=== PATIENT | female | born 1975 | race African-American/Black ===

== ENCOUNTER 2018-08-22 01:35 | Emergency (ER) | payer OTHER ==
[2018-08-22 01:45] VITALS: BP 118/75; PULSE 76; TEMP 98.3
[2018-08-22] MEDS ORDERED: SODIUM CHLORIDE 0.9% 1,000 ML IV STA (02:00)
--- NOTE | 2018-08-22 02:21 | ED ---
General Adult HPI - General Source: patient, family, RN notes reviewed Mode of arrival: ambulatory Limitations: no limitations <Darian Beltran - Last Filed: 08/22/18 03:21> <Ava Murdock - Last Filed: 08/22/18 06:43> - General Chief complaint: Vaginal Bleeding Stated complaint: Female Time Seen by Provider: 08/22/18 01:47 - History of Present Illness Initial comments: Patient's a 43-year-old female presents emergency room today with a chief complaint of dysuria. Patient does admit to increased urinary frequency. She does admit that she was treated for urinary tract infection approximately 1 month ago. She states that she was placed on Keflex also Diflucan. She states that she feels that the symptoms are back. She states she noticed that when she goes to the bathroom she wipes she sees some blood. She states she was unsure if she was maybe just wiping to hard. She does admit that she's had increased frequency. Patient does admit to some dizziness at times. Admits to history of anemia. States she does take iron. She denies any other complaints or symptoms. Patient denies any recent fever, chills, shortness of breath, chest pain, back pain, abdominal pain, nausea or vomiting, numbness or tingling , headaches or visual changes, or any other complaints. (Darian Beltran) - Related Data Allergies Allergy/AdvReac Type Severity Reaction Status Date / Time ibuprofen Allergy Unknown Verified 08/22/18 01:45 Review of Systems ROS Other: All systems not noted in ROS Statement are negative. <Darian Beltran - Last Filed: 08/22/18 03:21> ROS Other: All systems not noted in ROS Statement are negative. <Ava Murdock - Last Filed: 08/22/18 06:43> ROS Statement: Those systems with pertinent positive or pertinent negative responses have been documented in the HPI. Past Medical History Past Medical History: No Reported History History of Any Multi-Drug Resistant Organisms: MRSA Date of last positivie culture/infection: 01/24 MDRO Source:: blood Past Surgical History: Bariatric Surgery Smoking Status: Never smoker Past Alcohol Use History: None Reported Past Drug Use History: None Reported <Darian Beltran - Last Filed: 08/22/18 03:21> General Exam Limitations: no limitations <BeltranBriannaDarian - Last Filed: 08/22/18 03:21> Vital Signs 08/22/18 01:40 Temperature 98.3 F Pulse Rate 76 Respiratory 20 Rate Blood Pressure 118/75 O2 Sat by Pulse 100 Oximetry Medical Decision Making - Lab Data Result diagrams: 08/22/18 02:40 08/22/18 02:40 <DevinDarian - Last Filed: 08/22/18 03:21> - Lab Data Result diagrams: 08/22/18 02:40 08/22/18 02:40 <Angel Murdockssica Dom - Last Filed: 08/22/18 06:43> - Medical Decision Making Patient was initially seen and evaluated by Darian Beltran. Patient was presenting with vaginal bleeding and some lightheadedness after an apparent encounter with police. Urinalysis and labs were ordered Urinalysis had gross contamination and no evidence of UTI The patient was requesting to be seen by a physician rather than a PA, for care Patient has multiple complaints, she's been evaluated multiple times over the past few months diagnosed with urinary tract infections, she reports she has had urine cultures that revealed staph and E. coli. She's been treated with amoxicillin, Keflex, Macrobid. In addition she has been treated for Trichomonas and empirically treated for sexual transmitted infections. Patient reports that she has not been sexually active since being treated and she has no concern for sexual transmitted infections upon my initial evaluation. The patient's labs resulted with significant anemia, these results were discussed with the patient reports that she has had significant anemia in the past with hemoglobins as low as 3. She reports that due to her belief system she will not receive a blood transfusion. She also states that despite her spiritual beliefs she also would not accept a blood transfusion of somebody else 's blood due to risk of infectious disease. I did discuss with the patient that the low hemoglobin as taxing on her body and causing her fatigue and lightheadedness. Patient expresses understanding of this. Patient has follow- up with gynecology on the of this month. Patient repeatedly insisting that the bleeding is not from her known fibroids but from a kidney stone. A computed tomography scan was ordered. Computed tomography scan does reveal large pelvic mass is likely uterine in nature, however due to decreased visceral fat there was difficulty and imaging. Recommendation for ultrasound. Ultrasound was ordered. Patient allowed the transabdominal ultrasound but declined that pelvic ultrasound. Patient again insisting that none of her problems are caused by the fibroids and that she is here only for treatment of urinary tract infection. The patient's urine is not positive for urinary tract infection. Pelvic exam revealed scant dark blood in the vaginal vault, no active bleeding, no lesions, no vaginal discharge infection Swabs were taken The patient requested testing and treatment for sexual transmitted infections. Treatment for sexual transmitted infections including Flagyl for BV were given, patient reports she develops yeast infections with antibiotics so by mouth look on his all ordered. I offered the patient admission to the hospital for further evaluation of her anemia and possible treatment with transfusion. Patient declined this. Patient states that she has follow-up with gynecology. Patient has already contacted a urologist but does not have follow-up. The patient has decided to leave against medical advice because she does not want a blood transfusion and has established follow-up The patient has adequate capacity to make medical decisions. The patient refuses hospital admission and wants to be discharged. The risks have been explained to the patient, including worsening illness, chronic pain, permanent disability and . The benefits of workup/admission have also been explained, including the availability and proximity of nurses, physicians, monitoring, diagnostic testing , treatment and transfusion The patient was able to understand and state the risks and benefits of hospital admission. This was witnessed by nurse Gutierrez and me. The patient the opportunity to ask questions about their medical condition. The patient was treated to the extent that they would allow and knows that they may return for care at any time. (Ava Murdock) - Lab Data Lab Results 08/22/18 08/22/18 08/22/18 Range/Units 02:20 02:20 02:40 WBC 7.0 (3.8-10.6) k/uL RBC 4.11 (3.80-5.40) m/uL Hgb 6.8 L* (11.4-16.0) gm/dL Hct 25.5 L (34.0-46.0) % MCV 62.0 L (80.0-100.0) fL MCH 16.5 L (25.0-35.0) pg MCHC 26.6 L (31.0-37.0) g/dL RDW 19.2 H (11.5-15.5) % Plt Count 317 (150-450) k/uL Neutrophils % 78 % Lymphocytes % 16 % Monocytes % 4 % Eosinophils % 0 % Basophils % 0 % Neutrophils # 5.5 (1.3-7.7) k/uL Lymphocytes # 1.1 (1.0-4.8) k/uL Monocytes # 0.3 (0-1.0) k/uL Eosinophils # 0.0 (0-0.7) k/uL Basophils # 0.0 (0-0.2) k/uL Hypochromasia Marked Poikilocytosis Moderate Anisocytosis Slight Microcytosis Marked Sodium (137-145) mmol/L Potassium (3.5-5.1) mmol/L Chloride (98-107) mmol/L Carbon Dioxide (22-30) mmol/L Anion Gap mmol/L BUN (7-17) mg/dL Creatinine (0.52-1.04) mg/dL Est GFR (CKD-EPI)AfAm (>60 ml/min/1.73 sqM) Est GFR (CKD-EPI)NonAf (>60 ml/min/1.73 sqM) Glucose (74-99) mg/dL Calcium (8.4-10.2) mg/dL Total Bilirubin (0.2-1.3) mg/dL AST (14-36) U/L ALT (9-52) U/L Alkaline Phosphatase (38-126) U/L Total Protein (6.3-8.2) g/dL Albumin (3.5-5.0) g/dL Urine Color Yellow Urine Appearance Clear (Clear) Urine pH 5.5 (5.0-8.0) Ur Specific [place] 1.021 (1.001-1.035) Urine Protein Trace H (Negative) Urine Glucose (UA) Trace H (Negative) Urine Ketones Negative (Negative) Urine Blood Moderate H (Negative) Urine Nitrite Negative (Negative) Urine Bilirubin Negative (Negative) Urine Urobilinogen 3.0 (<2.0) mg/dL Ur Leukocyte Esterase Negative (Negative) Urine RBC 34 H (0-5) /hpf Urine WBC 2 (0-5) /hpf Ur Squamous Epith Cells 1 (0-4) /hpf Urine Mucus Occasional H (None) /hpf Urine HCG, Qual Not Detected (Not Detectd) 08/22/18 Range/Units 02:40 WBC (3.8-10.6) k/uL RBC (3.80-5.40) m/uL Hgb (11.4-16.0) gm/dL Hct (34.0-46.0) % MCV (80.0-100.0) fL MCH (25.0-35.0) pg MCHC (31.0-37.0) g/dL RDW (11.5-15.5) % Plt Count (150-450) k/uL Neutrophils % % Lymphocytes % % Monocytes % % Eosinophils % % Basophils % % Neutrophils # (1.3-7.7) k/uL Lymphocytes # (1.0-4.8) k/uL Monocytes # (0-1.0) k/uL Eosinophils # (0-0.7) k/uL Basophils # (0-0.2) k/uL Hypochromasia Poikilocytosis Anisocytosis Microcytosis Sodium 139 (137-145) mmol/L Potassium 4.1 (3.5-5.1) mmol/L Chloride 109 H (98-107) mmol/L Carbon Dioxide 21 L (22-30) mmol/L Anion Gap 9 mmol/L BUN 11 (7-17) mg/dL Creatinine 0.59 (0.52-1.04) mg/dL Est GFR (CKD-EPI)AfAm >90 (>60 ml/min/1.73 sqM) Est GFR (CKD-EPI)NonAf >90 (>60 ml/min/1.73 sqM) Glucose 78 (74-99) mg/dL Calcium 9.0 (8.4-10.2) mg/dL Total Bilirubin 0.5 (0.2-1.3) mg/dL AST 29 (14-36) U/L ALT 28 (9-52) U/L Alkaline Phosphatase 45 (38-126) U/L Total Protein 7.0 (6.3-8.2) g/dL Albumin 4.3 (3.5-5.0) g/dL Urine Color Urine Appearance (Clear) Urine pH (5.0-8.0) Ur Specific [place] (1.001-1.035) Urine Protein (Negative) Urine Glucose (UA) (Negative) Urine Ketones (Negative) Urine Blood (Negative) Urine Nitrite (Negative) Urine Bilirubin (Negative) Urine Urobilinogen (<2.0) mg/dL Ur Leukocyte Esterase (Negative) Urine RBC (0-5) /hpf Urine WBC (0-5) /hpf Ur Squamous Epith Cells (0-4) /hpf Urine Mucus (None) /hpf Urine HCG, Qual (Not Detectd) Disposition <Darian Beltran - Last Filed: 08/22/18 03:21> Is patient prescribed a controlled substance at d/c from ED?: No <Ava Murdock - Last Filed: 08/22/18 06:43> Clinical Impression: Dysfunctional uterine bleeding, Microcytic anemia, Uterine fibroid, Encounter for screening examination for sexually transmitted disease Disposition: Left Against Medical Advice Prescriptions: Clindamycin Gel [Clindamycin Phosphate] 1 applic TOPICAL DAILY #7 applicator Fluconazole [Diflucan] 100 mg PO DAILY #1 tab metroNIDAZOLE [Flagyl] 500 mg PO BID 7 Days #14 tab Referrals: None,Stated [Primary Care Provider] - 1-2 days
[2018-08-22 02:42] LABS: Appearance,Urine Clear (Clear); Bilirubin,Urine Negative (Negative); Blood,Urine Moderate (Negative); Color,Urine Yellow; Glucose,Urine (UA) Trace (Negative); Ketones,Urine Negative (Negative); Leukocyte Esterase,Urine Negative (Negative); Mucus,Urine Occasional /hpf; Nitrite,Urine Negative (Negative); PH, Urine 5.5 (5.0-8.0); Protein,Urine Trace (Negative); RBC,Urine 34 /hpf (0-5); Specific Gravity,Urine 1.021 (1.001-1.035); Squamous Epithelial Cell,Urine 1 /hpf (0-4); WBC,Urine 2 /hpf (0-5)
[2018-08-22 02:59] LABS: Anisocytosis Slight; Eosinophils % (A) 0 %; Hypochromasia Marked; Microcytosis Marked; Poikilocytosis Moderate
[2018-08-22 03:09] LABS: ALT 28 U/L (9-52); AST 29 U/L (14-36); Albumin 4.3 g/dL (3.5-5.0); Alkaline Phosphatase 45 U/L (38-126); Anion Gap 9 mmol/L; Blood Urea Nitrogen 11 mg/dL (7-17); Carbon Dioxide 21 mmol/L (22-30); Chloride 109 mmol/L (98-107); Glucose 78 mg/dL (74-99); Potassium 4.1 mmol/L (3.5-5.1); Sodium 139 mmol/L (137-145); Total Bilirubin 0.5 mg/dL (0.2-1.3)
[2018-08-22 03:12] LABS: Basophils % (A) 0 %; HCT 25.5 % (34.0-46.0); Lymphocytes # (A) 1.1 k/uL (1.0-4.8); Lymphocytes % (A) 16 %; MCH 16.5 pg (25.0-35.0); MCHC 26.6 g/dL (31.0-37.0); Mean Platelet Volume 6.6; Monocytes # (A) 0.3 k/uL (0-1.0); Monocytes % (A) 4 %; Neutrophils # (A) 5.5 k/uL (1.3-7.7); Neutrophils % (A) 78 %; Platelet Count 317 k/uL (150-450); RBC 4.11 m/uL (3.80-5.40); RDW 19.2 % (11.5-15.5)
[2018-08-22 03:15] LABS: HGB 6.8 gm/dL (11.4-16.0)
--- NOTE | 2018-08-22 04:33 | CT ---
EXAMINATION TYPE: CT abdomen pelvis wo con DATE OF EXAM: 08/22/2018 COMPARISON: None HISTORY: vaginal bleeding CT DLP: 350.4 mGycm Automated exposure control for dose reduction was used. TECHNIQUE: Helical acquisition of images was performed from the lung bases through the pelvis. FINDINGS: Lung bases are clear of consolidation. There is no pleural effusion. There is subsegmental atelectasi s at the right posterior lung base. There is no pericardial effusion. Liver shows no focal defect. There is no evidence of a spine mass. Exam is limited by lack of contras t. Gallbladder is large and measures 4.5 cm. There is no sign of pancreatic mass. There are surgical clips apparently of the stomach from bariatric surgery. There is no adrenal mass. Kidneys show no hyd ronephrosis. I see no definite retroperitoneal adenopathy. Bladder distends smoothly. Uterus is antev erted. Uterus is large and measures 13 x 7 cm. The lumbar spine is intact. I see no bony destructive process. There is a rounded 7.5 cm intermediate soft tissue density mass in the high pelvis on the right side. Origin of this mass is not clear. The exam is limited by lack of intraperitoneal fat. I see no defin ite free fluid in the pelvis. There is no inguinal hernia. There is no inguinal adenopathy. I see no definite intestinal wall thickening. There is no sign of a bowel obstruction. There is gas down to th e rectum. IMPRESSION: LARGE MASS IN THE PELVIS ON THE RIGHT SIDE. I WOULD CONSIDER POSSIBILITIES OF OVARIAN TUMOR, LARGE EX OPHYTIC FIBROID, HEMORRHAGIC CYST. ULTRASOUND WOULD BE HELPFUL FOR FURTHER EVALUATION IF CLINICALLY I NDICATED. NO BOWEL OBSTRUCTION. APPENDIX IS NOT SEEN.
[2018-08-22] MEDS ORDERED: NALOXONE 0.4 MG/ML 1 ML VIAL IV PRN (05:06)
--- NOTE | 2018-08-22 06:09 | US ---
EXAMINATION TYPE: US pelvic complete DATE OF EXAM: 08/22/2018 COMPARISON: NONE CLINICAL HISTORY: Pain. TECHNIQUE: Transabdominal (TA). Transabdominal sonographic images of the pelvis were acquired. Pt doesn't want TV. Date of LMP: 07/06/2018 EXAM MEASUREMENTS: Uterus: 13.1 x 8.3 x 12.1 cm Endometrial Stripe: 2.1 cm Right Ovary: 4.2 x 3.6 x 2.6 cm Left Ovary: Unable to visualize at this time Limited due to bowel gas and uterine size. 1. Uterus: Anteverted Overall heterogeneous with 2 border defined fibroids (pedunculated: 6.0 x 5. 9 x 6.9cm) (intramural: 3.7 x 3.5 x 3.7cm) 2. Endometrium: Prominent with echogenic area within and some trace fluid above and below echogenic area (3.2 x 1.9 x 2.0cm)?submucosal fibroid versus polyp versus other etiology 3. Right Ovary: Anechoic area with some internal debris likely hemorrhagic cyst versus other etiolog y 4. Left Ovary: Obscured by overlying bowel gas not visualized Spectral, color and waveform doppler imaging shows good arterial and venous flow within the right o vary. 5. Bilateral Adnexa: wnl peristalsing bowel 6. Posterior cul-de-sac: wnl IMPRESSION: Left ovary is not seen. No adnexal mass. Large pedunculated uterine fibroid on the right side that explains the soft tissue density in the pelvis on the CT scan today. No free fluid. Abnorma l thickened endometrium measures 2.1 cm. Follow-up is recommended. There is complex thickening of the endometrium. Right ovarian artery shows normal arterial waveform on the color Doppler images. No evidence of torsi on
[2018-08-22] MEDS ORDERED: AZITHROMYCIN 500 MG TAB PO STA (06:21)
[2018-08-22] MEDS ORDERED: cefTRIAXone 250 MG VIAL IM STA (06:21)
[2018-08-22 06:49] VITALS: RESP 18
[2018-08-23 16:11] LABS: C. trachomatis,PCR Negative (Neg,Equiv); Chlamydia trachomatis Source Vagina
[2018-08-23 16:13] LABS: N. gonorrhoeae,PCR Negative (Neg,Equiv); Neisseria Source Vagina
== END 2018-08-22 06:45 | disposition left against medical advice (07) ==
LOC: EC 01:35
DX: N93.8 Other specified abnormal uterine and vaginal bleeding (principal); D25.9 Leiomyoma of uterus, unspecified; D50.9 Iron deficiency anemia, unspecified; Z11.3 Encounter for screening for infections with a predominantly sexual mode of transmission; Z86.14 Personal history of Methicillin resistant Staphylococcus aureus infection; Z88.6 Allergy status to analgesic agent
CPT/HCPCS: 36415; 80053; 85025; 81001; 81025; 87040; 87808; 87491; 87591; 87070; 87086; 93976; 76856; 74176; 99284; 96360; 96361; 96372; J0696; 87205

== ENCOUNTER 2018-08-22 12:32 | Inpatient (IN) | payer MEDICARE, OTHER ==
--- NOTE | 2018-08-22 13:11 | ED ---
General Adult HPI - General Chief complaint: Vaginal Bleeding Stated complaint: Vaginal Bleeding Time Seen by Provider: 08/22/18 12:32 Source: EMS, RN notes reviewed Mode of arrival: EMS Limitations: no limitations - History of Present Illness Initial comments: This is a 43-year-old female presents emergency Department complaining of heavy vaginal bleeding over the last few days. Patient was seen this morning in the emergency department she left AMA after she was told she had a blood transfusion and she refused to receive 4. Patient went over to [facility] did not inform them that she was over at our facility earlier in the day and they offered a blood transfusion again she refused and I transferred care to our hospitalist morning. Patient states she continues to bleed but not as heavy she was earlier. Patient states she's very lightheaded and feels as though she might pass out at times. Patient states she has had heavy bleeding every month with her. Patient is a very lightheaded like this in the past. Patient again is refusing any blood transfusion. - Related Data Previous Rx's Medication Instructions Recorded Clindamycin Gel [Clindamycin 1 applic TOPICAL DAILY #7 08/22/18 Phosphate] applicator Fluconazole [Diflucan] 100 mg PO DAILY #1 tab 08/22/18 Fluconazole [Diflucan] 150 mg PO ONCE #1 tab 08/22/18 metroNIDAZOLE [Flagyl] 500 mg PO BID 7 Days #14 tab 08/22/18 Allergies Allergy/AdvReac Type Severity Reaction Status Date / Time aspirin AdvReac GASTRIC Verified 08/22/18 13:06 BYPASS ibuprofen AdvReac GASTRIC Verified 08/22/18 13:06 BYPASS Review of Systems ROS Statement: Those systems with pertinent positive or pertinent negative responses have been documented in the HPI. ROS Other: All systems not noted in ROS Statement are negative. Past Medical History Past Medical History: No Reported History History of Any Multi-Drug Resistant Organisms: MRSA Date of last positivie culture/infection: 01/24 MDRO Source:: blood Past Surgical History: Bariatric Surgery Past Psychological History: Anxiety, Depression Smoking Status: Never smoker Past Alcohol Use History: None Reported Past Drug Use History: None Reported General Exam - General Exam Comments Initial Comments: GENERAL: Patient is well-developed and well-nourished. Patient is nontoxic and well- hydrated and is in no acute distress. ENT: Neck is soft and supple. No significant lymphadenopathy is noted. Oropharynx is clear. Moist mucous membranes. Neck has full range of motion without eliciting any pain. There is no thyroid enlargement and no masses were felt. EYES: The sclera were anicteric and conjunctiva is pale. Extraocular movements were intact and pupils were equal round and reactive to light. Eyelids were unremarkable. PULMONARY: Unlabored respirations. Good breath sounds bilaterally. No audible rales rhonchi or wheezing was noted. CARDIOVASCULAR: There is a regular rate and rhythm without any murmurs gallops or rubs. ABDOMEN: Soft and nontender with normal bowel sounds. SKIN: Skin is clear with no lesions or rashes and otherwise unremarkable. NEUROLOGIC: Patient is alert and oriented x3. Cranial nerves II through XII are grossly intact. Motor and sensory are also intact. Normal speech, volume and content. Symmetrical smile. MUSCULOSKELETAL: Normal extremities with adequate strength and full range of motion. No lower extremity swelling or edema. No calf tenderness. LYMPHATICS: No significant lymphadenopathy is noted PSYCHIATRIC: Normal psychiatric evaluation. Limitations: no limitations Course Vital Signs 08/22/18 12:32 Temperature 97.6 F Pulse Rate 65 Respiratory 18 Rate Blood Pressure 108/66 O2 Sat by Pulse 100 Oximetry Medical Decision Making - Medical Decision Making I spoke with Dr. Jose To agreed to come and see the patient. Once Dr. To saw the patient the patient agreed to a blood transfusion and admitted the patient Dr. To. - Lab Data Result diagrams: 08/22/18 13:12 Lab Results 08/22/18 Range/Units 13:12 WBC 4.1 (3.8-10.6) k/uL RBC 3.59 L (3.80-5.40) m/uL Hgb 5.7 L* (11.4-16.0) gm/dL Hct 22.4 L (34.0-46.0) % MCV 62.5 L (80.0-100.0) fL MCH 15.9 L (25.0-35.0) pg MCHC 25.5 L (31.0-37.0) g/dL RDW 19.2 H (11.5-15.5) % Plt Count 281 (150-450) k/uL Neutrophils % 68 % Lymphocytes % 23 % Monocytes % 5 % Eosinophils % 1 % Basophils % 0 % Neutrophils # 2.8 (1.3-7.7) k/uL Lymphocytes # 1.0 (1.0-4.8) k/uL Monocytes # 0.2 (0-1.0) k/uL Eosinophils # 0.0 (0-0.7) k/uL Basophils # 0.0 (0-0.2) k/uL Hypochromasia Marked Poikilocytosis Moderate Anisocytosis Slight Microcytosis Marked Disposition Clinical Impression: Anemia, Vaginal bleeding, Lightheaded Disposition: ADMITTED IP TO THIS HOSP Referrals: None,Stated [Primary Care Provider] - 1-2 days Time of Disposition: 14:02
[2018-08-22 13:30] LABS: Anisocytosis Slight; Basophils % (A) 0 %; Eosinophils % (A) 1 %; HCT 22.4 % (34.0-46.0); Hypochromasia Marked; Lymphocytes % (A) 23 %; MCH 15.9 pg (25.0-35.0); MCHC 25.5 g/dL (31.0-37.0); MCV 62.5 fL (80.0-100.0); Mean Platelet Volume 6.2; Microcytosis Marked; Monocytes # (A) 0.2 k/uL (0-1.0); Monocytes % (A) 5 %; Neutrophils # (A) 2.8 k/uL (1.3-7.7); Neutrophils % (A) 68 %; Platelet Count 281 k/uL (150-450); Poikilocytosis Moderate; RBC 3.59 m/uL (3.80-5.40); RDW 19.2 % (11.5-15.5); WBC 4.1 k/uL (3.8-10.6)
[2018-08-22 13:38] LABS: HGB 5.7 gm/dL (11.4-16.0)
[2018-08-22] MEDS ORDERED: SODIUM CHLORIDE 0.9% 1,000 ML IV ONE ×2 (14:15→15:39)
--- NOTE | 2018-08-22 14:40 | P.HPOB ---
History of Present Illness H&P Date: 08/22/18 Chief Complaint: Menorrhagia with symptomatic anemia Patient is a 43-year-old she 0 P0 who arrives to the emergency room this morning complaining of heavy vaginal bleeding. She relates that over the last 6 -8 months her bleeding has gotten dramatically worse than it was previously bleeding for as many as 7 days at a time with only 20 days in between periods. She notes that her bleeding has become heavier over the last 4-5 years and she is seen multiple gynecologists but no long-term treatment plan had been devised. She relates that she was aware that she had a fibroid uterus and the previously when the left with the last 2-3 year she had seen a varnisher apprentice in [place] could try to put her on Lysteda for her heavy bleeding following some type of biopsy. Today her hemoglobin is noted to be 5.7. After lengthy discussion with the patient we have opted for a D&C with hysteroscopy and she will receive blood transfusion prior to entering surgery to keep her from having any significant problems or at least to try and keep her from having any significant [place] due to her anemia intraoperatively. We did discuss risks and benefits including bleeding and infection as well as damage to the uterine wall perforation or need for other surgeries. Ultrasound today showed a 13 cm uterus with a 6 cm pedunculated fibroid as well as a probable 4 cm intramural fibroid. Within the lining of the uterus the lining measures 2.1 cm but there is also some question as to whether or not there is a polyp or fibroid in her uterus as well. She is scheduled for a D&C with hysteroscopy to thin the lining of her uterus and then will try and plan outpatient either control pills were Lysteda to try and keep her from having any more heavy bleeding. During our lengthy discussion about treatment plan and options she continued to get off topic and tensioned about her vaginal infection or skin infection which she thinks has something to do with her vaginal bleeding I have reiterated to her that bacterial vaginosis should not cause any heavy vaginal bleeding and an E. coli bacterial infection were also not cause any significant vaginal bleeding at least insofar as her case is concerned with 2 clear reasons for her to have heavy vaginal bleeding already present. Past Medical History Past Medical History: No Reported History History of Any Multi-Drug Resistant Organisms: MRSA Date of last positivie culture/infection: 01/24 MDRO Source:: blood Past Surgical History: Bariatric Surgery Past Psychological History: Anxiety, Depression Smoking Status: Never smoker Past Alcohol Use History: None Reported Past Drug Use History: None Reported Medications and Allergies Home Medications Medication Instructions Recorded Confirmed Type Clindamycin Gel [Clindamycin 1 applic TOPICAL DAILY #7 08/22/18 08/22/18 Rx Phosphate] applicator Fluconazole [Diflucan] 100 mg PO DAILY #1 tab 08/22/18 08/22/18 Rx Fluconazole [Diflucan] 150 mg PO ONCE #1 tab 08/22/18 08/22/18 Rx metroNIDAZOLE [Flagyl] 500 mg PO BID 7 Days #14 tab 08/22/18 08/22/18 Rx Allergies Allergy/AdvReac Type Severity Reaction Status Date / Time aspirin AdvReac GASTRIC Verified 08/22/18 13:06 BYPASS ibuprofen AdvReac GASTRIC Verified 08/22/18 13:06 BYPASS Exam Osteopathic Statement: *. No significant issues noted on an osteopathic structural exam other than those noted in the History and Physical/Consult. Vital Signs Temp Pulse Resp BP Pulse Ox 08/22/18 14:20 97.9 F 84 18 110/60 100 08/22/18 12:32 97.6 F 65 18 108/66 100 Intake and Output 08/21/18 08/22/18 08/22/18 22:59 06:59 14:59 Other: Weight 72.575 kg - OBG Physical Exam Breast: both: normal (no masses) Abdomen: bowel sounds normal, no diffuse tenderness, no bruit present, no guarding noted, no hepatomegaly, no splenomegaly, no mass Vulva: both: normal Vagina: normal moisture, no discharge Cervix: no lesion, no discharge Uterus: normal size, normal contour Adnexa: both: normal Anus/Rectum: normal perianal skin, no rectal mass, no hemorrhoids, heme negative Results Result Diagrams: 08/22/18 13:12 Abnormal Lab Results - Last 24 Hours (Table) 08/22/18 Range/Units 13:12 RBC 3.59 L (3.80-5.40) m/uL Hgb 5.7 L* (11.4-16.0) gm/dL Hct 22.4 L (34.0-46.0) % MCV 62.5 L (80.0-100.0) fL MCH 15.9 L (25.0-35.0) pg MCHC 25.5 L (31.0-37.0) g/dL RDW 19.2 H (11.5-15.5) %
[2018-08-22] MEDS ORDERED: fentaNYL (PF) 50 MCG/ML 2 ML AMP ONE (15:39)
[2018-08-22] MEDS ORDERED: MIDAZOLAM 2 MG/2 ML VIAL ONE (15:39)
[2018-08-22] MEDS ORDERED: PROPOFOL 10 MG/ML 20 ML VIAL IV ONE (15:39)
--- NOTE | 2018-08-22 16:13 | P.OP ---
Date of Procedure: 08/22/18 Preoperative Diagnosis: Menorrhagia with anemia and fibroid uterus Postoperative Diagnosis: Same Procedure(s) Performed: D&C with hysteroscopy Anesthesia: MARYLIN Surgeon: Shamir To Estimated Blood Loss (ml): 30 Pathology: other (Uterine curettings) Condition: stable Disposition: floor Operative Findings: Uterine lining showing fibroids and probable polyp as well as proliferative endometrium Description of Procedure: Patient was taken to the operating suite where a general anesthetic was found be adequate. She was prepped and draped in the normal sterile fashion and placed in the dorsal lithotomy position. Initially a weighted speculum was inserted into the vagina and the anterior lip cervix identified and grasped with a single-tooth tenaculum. Uterus was then sounded to 11 cm and the cervix was dilated. Camera was inserted difficult visualization with significant quantity of blood and proliferative endometrium. Camera was then removed and sharp curettings the endometrium were obtained. All tissues placed on Telfa sent to pathology for evaluation. There was suspected polyp that was removed as well as possible fibroid, lining was somewhat irregular consistent with fibroid uterus. Once tissues collected, incidents removed. Sponge, lap, needle counts were all correct 2. Patient was then taken to the recovery room in stable and satisfactory condition.
[2018-08-22] MEDS: KETOROLAC 30 MG/ML 1 ML VIAL IVP PRN (19:45)
[2018-08-22 20:44] VITALS: BMI 27.4
[2018-08-22 23:36] VITALS: RESP 16
--- NOTE | 2018-08-23 08:17 | P.DS ---
Providers Date of admission: 08/22/18 14:15 Expected date of discharge: 08/23/18 Attending physician: Shamir To Consults: 08/22/18 16:04 Consult Physician Routine Consulting Provider: María Armenta Consult Reason/Comments: anemia Do you want consulting provider notified?: Yes Primary care physician: Stated None Hospital Course: Patient is seen and evaluated this morning. She is feeling much better than yesterday. Lightheadedness is essentially resolved. She notes that she has some light spotting but that is all. Thorough discussion of instructions for discharge were reviewed including should she have any heavy bleeding or severe pain or other changes including lightheadedness or dizziness to report back to the emergency room. She will follow up with me in 2 weeks for review of pathology and discussion of long-term plan. I did send a prescription for Lasix due to to the pharmacy and she is going to take that one tablet 3 times a day for up to 5 days during her cycle to hopefully reduce her bleeding. She is aware of risks including blood clots and DVT stroke and MS or other due to the way that lysed it works, however she is previously also been counseled on this medication was supposed to been taking it already. We did discuss and I did offer and provide 6 months worth of control should she choose, but she is not to use both as that would increase her risk of DVT to an acceptable margin. We'll plan discharged home home today assuming her hemoglobin is about 7. She also will need iron tablets which were also sent to her pharmacy. Though she can take one a day. On physical exam vital signs are currently stable and afebrile. Heart regular, lungs clear, extremities are without pain. Abdomen soft nontender and vaginal bleeding is light. Patient Condition at Discharge: Stable Plan - Discharge Summary New Discharge Prescriptions: New Tranexamic Acid [Lysteda] 650 mg PO Q8HR #15 tablet No Action Clindamycin Gel [Clindamycin Phosphate] 1 applic TOPICAL DAILY #7 applicator Fluconazole [Diflucan] 100 mg PO DAILY #1 tab metroNIDAZOLE [Flagyl] 500 mg PO BID 7 Days #14 tab Fluconazole [Diflucan] 150 mg PO ONCE #1 tab Discharge Medication List Clindamycin Gel [Clindamycin Phosphate] 1 applic TOPICAL DAILY #7 applicator [Rx] Fluconazole [Diflucan] 100 mg PO DAILY #1 tab 08/22/18 [Rx] Fluconazole [Diflucan] 150 mg PO ONCE #1 tab 08/22/18 [Rx] metroNIDAZOLE [Flagyl] 500 mg PO BID 7 Days #14 tab 08/22/18 [Rx] Tranexamic Acid [Lysteda] 650 mg PO Q8HR #15 tablet 08/23/18 [Rx] Follow up Appointment(s)/Referral(s): None,Stated [Primary Care Provider] - 1-2 days Shamir To DO [Doctor of Osteopathic Medicine] - 2 Weeks Activity/Diet/Wound Care/Special Instructions: Call the office or return to the emergency room with any heavy vaginal bleeding. I did explain that she should have some vaginal spotting to light bleeding over the next several days as the remnants of the uterine contents still are going to come out. However, should she have any heavy bleeding greater than 1 pad per hour she needs or ports emergency room immediately due to how low her hemoglobin was to start. She will follow up with me in 2 weeks in the office at that time she should've had 1 cycle and hopefully if she can take her Lasix. She can see if that actually worked to help her bleeding. Discharge Disposition: HOME SELF-CARE
[2018-08-23] MEDS: KETOROLAC 30 MG/ML 1 ML VIAL IVP PRN (08:57)
[2018-08-23 10:20] VITALS: BP 121/78; PULSE 63; TEMP 99.2
[2018-08-23 11:22] LABS: Anisocytosis Moderate; Basophils % (A) 1 %; Eosinophils # (A) 0.1 k/uL (0-0.7); Eosinophils % (A) 2 %; HCT 29.1 % (34.0-46.0); Hypochromasia Marked; Lymphocytes # (A) 0.8 k/uL (1.0-4.8); Lymphocytes % (A) 20 %; MCH 19.1 pg (25.0-35.0); MCHC 28.3 g/dL (31.0-37.0); MCV 67.4 fL (80.0-100.0); Mean Platelet Volume 6.7; Microcytosis Marked; Monocytes # (A) 0.2 k/uL (0-1.0); Monocytes % (A) 6 %; Neutrophils # (A) 2.7 k/uL (1.3-7.7); Neutrophils % (A) 70 %; Platelet Count 281 k/uL (150-450); Poikilocytosis Marked; RBC 4.31 m/uL (3.80-5.40); RDW 21.7 % (11.5-15.5); WBC 3.8 k/uL (3.8-10.6)
[2018-08-23 11:27] LABS: HGB 8.2 gm/dL (11.4-16.0)
--- NOTE | 2018-08-23 14:09 | P.CONS ---
History of Present Illness - Reason for Consult Anemia - History of Present Illness 38-year-old female has been vaginal bleed came in with symptomatic anemia received 2 units of blood transfusion hemoglobin around 8 as consulted for further evaluate continued patient has microcytic anemia most probably I severe iron deficiency anemia I ordered the ferritin levels which will not be available but by the time of her discharge, also order B12 and folate levels as per the request of the patient but these look will not be available by the time patient is discharged and I requested her to let the primary care physician know so that this can be followed up as an outpatient. If patient ferritin is significantly low she may need IV iron transfusion. Patient is presently being discharged on 325 by mouth of ferrous sulfate asked her to take 325 by mouth twice a day. Patient did have gastric bypass surgery which is contributing to her severe anemia probable severe and deficiency patient at this point of time denied any symptoms. Patient underwent endometrial curettage. Review of Systems REVIEW OF SYSTEMS: CONSTITUTIONAL: No fever, no malaise, no fatigue. HEENT: No recent visual problems or hearing problems. Denied any sore throat. CARDIOVASCULAR: No chest pain, orthopnea, PND, no palpitations, no syncope. PULMONARY: No shortness of breath, no cough, no hemoptysis. GASTROINTESTINAL: No diarrhea, no nausea, no vomiting, no abdominal pain. Normoactive bowel sounds. NEUROLOGICAL: No headaches, no weakness, no numbness. HEMATOLOGICAL: Denies any bleeding or petechiae. GENITOURINARY: Denies any burning micturition, frequency, or urgency. MUSCULOSKELETAL/RHEUMATOLOGICAL: Denies any joint pain, swelling, or any muscle pain. ENDOCRINE: Denies any polyuria or polydipsia. The rest of the 14-point review of systems is negative. Past Medical History Past Medical History: No Reported History History of Any Multi-Drug Resistant Organisms: MRSA Year Discovered:: 01/24 MDRO Source:: blood Past Surgical History: Bariatric Surgery Past Psychological History: Anxiety, Depression Smoking Status: Never smoker Past Alcohol Use History: None Reported Past Drug Use History: None Reported Medications and Allergies Home Medications Medication Instructions Recorded Confirmed Type Clindamycin Gel [Clindamycin 1 applic TOPICAL DAILY #7 08/22/18 08/22/18 Rx Phosphate] applicator Fluconazole [Diflucan] 100 mg PO DAILY #1 tab 08/22/18 08/22/18 Rx Fluconazole [Diflucan] 150 mg PO ONCE #1 tab 08/22/18 08/22/18 Rx metroNIDAZOLE [Flagyl] 500 mg PO BID 7 Days #14 tab 08/22/18 08/22/18 Rx Acetaminophen-Codeine 300-30mg 1 tab PO Q4H PRN #20 tablet 08/23/18 Rx [Tylenol #3] Ferrous Sulfate [Feosol] 325 mg PO DAILY #30 tab 08/23/18 Rx Tranexamic Acid [Lysteda] 650 mg PO Q8HR #15 tablet 08/23/18 Rx Tranexamic Acid [Lysteda] 650 mg PO Q8HR #15 tablet 08/23/18 Rx Allergies Allergy/AdvReac Type Severity Reaction Status Date / Time aspirin AdvReac GASTRIC Verified 08/22/18 13:06 BYPASS ibuprofen AdvReac GASTRIC Verified 08/22/18 13:06 BYPASS Physical Exam Vitals: Vital Signs Temp Pulse Pulse Resp BP BP Pulse Ox 08/23/18 07:00 99.2 F 63 16 121/78 100 08/23/18 00:41 98.0 F 70 16 96/61 100 08/22/18 21:10 97.7 F 87 16 120/76 100 08/22/18 19:00 55 L 107/69 08/22/18 18:45 55 L 114/74 08/22/18 18:30 55 L 121/77 08/22/18 18:15 53 L 114/73 08/22/18 18:00 98.1 F 104 H 12 124/74 97 08/22/18 17:45 59 L 16 112/68 100 08/22/18 17:30 97.2 F L 49 L 16 117/62 100 08/22/18 17:10 97 F L 53 L 53 L 16 118/75 118/75 100 08/22/18 17:09 97.2 F L 49 L 16 117/62 100 08/22/18 16:59 97.2 F L 52 L 16 113/73 100 08/22/18 16:55 53 L 16 113/70 100 08/22/18 16:40 58 L 16 113/70 100 08/22/18 16:25 57 L 16 108/72 100 08/22/18 16:10 97.2 F L 73 16 111/69 98 08/22/18 16:00 16 08/22/18 15:57 97.5 F L 53 L 16 113/70 08/22/18 14:20 97.9 F 84 18 110/60 100 Intake and Output 08/22/18 08/23/18 08/23/18 22:59 06:59 14:59 Intake Total 1210 Output Total 100 Balance 1110 Intake: IV 900 Blood Product 310 Rc As-3 Unit 0 [id number] Rc As-3 Unit 310 [id number] Output: Estimated Blood Loss 100 Other: Voiding Method Toilet # Voids 1 2 Weight 72.575 kg PHYSICAL EXAMINATION: GENERAL: The patient is alert and oriented x3, not in any acute distress. Well developed, well nourished. HEENT: Pupils are round and equally reacting to light. EOMI. No scleral icterus. No conjunctival pallor. Normocephalic, atraumatic. No pharyngeal erythema. No thyromegaly. CARDIOVASCULAR: S1 and S2 present. No murmurs, rubs, or gallops. PULMONARY: Chest is clear to auscultation, no wheezing or crackles. ABDOMEN: Soft, nontender, nondistended, normoactive bowel sounds. No palpable organomegaly. MUSCULOSKELETAL: No joint swelling or deformity. EXTREMITIES: No cyanosis, clubbing, or pedal edema. NEUROLOGICAL: Gross neurological examination did not reveal any focal deficits. SKIN: No rashes. Results CBC & Chem 7: 08/23/18 10:00 Labs: Abnormal Lab Results - Last 24 Hours (Table) 08/22/18 08/23/18 Range/Units 13:12 10:00 Hgb 8.2 L D (11.4-16.0) gm/dL Hct 29.1 L (34.0-46.0) % MCV 67.4 L (80.0-100.0) fL MCH 19.1 L (25.0-35.0) pg MCHC 28.3 L (31.0-37.0) g/dL RDW 21.7 H (11.5-15.5) % Lymphocytes # 0.8 L (1.0-4.8) k/uL Crossmatch See Detail Assessment and Plan Plan: Possible acute on chronic anemia acute anemia secondary to vaginal bleed patient received 3 units of blood transfusion chronic anemia probably secondary because of severe iron deficiency from gastric bypass further management as mentioned above -Anxiety disorder -Depression -Vaginal bleed patient underwent endometrial curettage
[2018-08-23 19:38] LABS: Folate, Serum 6.3 ng/mL
== END 2018-08-23 16:00 | disposition home or self-care (01) | DRG 744 ==
LOC: EC 12:32 → 4SSUR 14:15
PROVIDERS: ADMIT Obstetrics & Gynecology; ATTEND Obstetrics & Gynecology
PROC: 0UB98ZX Excision of Uterus, Via Natural or Artificial Opening Endoscopic, Diagnostic (ICD-10-PCS; 2018-08-22)
PROC: 30233N1 Transfusion of Nonautologous Red Blood Cells into Peripheral Vein, Percutaneous Approach (ICD-10-PCS; 2018-08-22)
PROC: 0UDB8ZX Extraction of Endometrium, Via Natural or Artificial Opening Endoscopic, Diagnostic (ICD-10-PCS; principal; 2018-08-22 14:59)
DX: N92.0 Excessive and frequent menstruation with regular cycle (principal); D62 Acute posthemorrhagic anemia; D25.1 Intramural leiomyoma of uterus; F32.9 Major depressive disorder, single episode, unspecified; F41.9 Anxiety disorder, unspecified; N76.0 Acute vaginitis; L08.9 Local infection of the skin and subcutaneous tissue, unspecified; N84.0 Polyp of corpus uteri; Z98.84 Bariatric surgery status; Z88.6 Allergy status to analgesic agent; Z86.14 Personal history of Methicillin resistant Staphylococcus aureus infection
CPT/HCPCS: 36415; 82607; 82670; 82728; 82746; 82747; 83001; 83002; 84146; 84443; 84703; 85025; 86694; 86695; 86696; 86780; 86850; 86900; 86901; 86920; 88305; 96360; 99285